=== PATIENT | female | born 1995 | race Caucasian/White ===

== ENCOUNTER 2018-04-11 09:28 | Emergency (ER) | payer OTHER, SELFPAY ==
--- OUTSIDE RECORDS SUMMARY | 2018-04-11 09:30 | XMS REPORT ---
:1995 Author Organization eClinicalWorks Care Team Providers Name Role Phone Ramón Dewey Provider Role Unavailable Allergies No Known Allergies Problems Problem Type Condition Code Onset Dates Condition Status Problem Encounter for screening for Z11.3 Active infections with predominantly sexual mode of transmission Problem Encounter for surveillance of Z30.46 Active implantable subdermal contraceptive Problem Subacute vaginitis N76.1 Active Problem Encounter for gynecological Z01.419 Active examination without abnormal finding Problem Other specified bacterial agents as B96.89 Active the cause of diseases classified elsewhere Problem Acute vaginitis N76.0 Active Medications Medication Code System Code Instructions Start Date End Date Status Dosage Diflucan [facility] [id number] 150 MG Orally Active 1 tablet Once a day Results No Known Results Summary Purpose eClinicalWorks Submission
--- OUTSIDE RECORDS SUMMARY | 2018-04-11 09:30 | XMS REPORT ---
:1995 Author Organization eClinicalWorks Care Team Providers Name Role Phone Ramón Dewey Provider Role Unavailable Allergies, Adverse Reactions, Alerts Substance Reaction Event Type N.K.D.A. Info Not Available Non Drug Allergy Problems Problem Type Condition Code Onset Dates Condition Status Assessment Encounter for screening for Z11.3 Active infections with predominantly sexual mode of transmission Problem Encounter for screening for Z11.3 Active infections with predominantly sexual mode of transmission Problem Encounter for surveillance of Z30.46 Active implantable subdermal contraceptive Problem Subacute vaginitis N76.1 Active Problem Encounter for gynecological Z01.419 Active examination without abnormal finding Assessment Subacute vaginitis N76.1 Active Problem Other specified bacterial agents as B96.89 Active the cause of diseases classified elsewhere Problem Acute vaginitis N76.0 Active Medications Medication Code System Code Instructions Start End Date Status Dosage Date Flagyl NDC 96156033335 500 MG Orally Active 1 tablet every 12 hours Nexplanon NDC 79287520051 68 MG Active not defined Subcutaneous Flagyl NDC 75741425815 500 MG Orally Active 1 tablet every 12 hours Results No Known Results Summary Purpose eClinicalWorks Submission
[2018-04-11] MEDS ORDERED: KETOROLAC 30 MG/ML INJ ONE (10:30)
[2018-04-11] MEDS ORDERED: HYDROCODONE/APAP 5/325 MG TAB ONE (10:30)
[2018-04-11 10:47] LABS: Urine Bacteria >50 /HPF (<20); Urine Culture Reflex Order REFLEXED; Urine RBC <5 /HPF (NONE SEEN)
[2018-04-11 10:48] LABS: Urine Blood TRACE (NEG); Urine Glucose NEGATIVE (NEG); Urine Protein NEGATIVE (NEG); Urine pH 5.5 (5.0-7.0)
--- NOTE | 2018-04-11 11:00 | RAD REPORT ---
EXAM DESCRIPTION: CT - Stone Protocol - 04/11/2018 10:35 am CLINICAL HISTORY: Abdominal pain. Left lower quadrant pain COMPARISON: 2016 TECHNIQUE: Computed axial tomography of the abdomen pelvis was obtained without oral or IV contrast. Lack of IV and oral contrast limits evaluation of solid organs, bowel, and vessels. Coronal reformat yehuda images were obtained and reviewed. All CT scans are performed using dose optimization technique as appropriate and may include automated exposure control or mA/KV adjustment according to patient size. FINDINGS: A renal calculus is not seen. Mild left hydronephrosis is present. A 3 millimeter calculus is present within the distal left ureter. The liver, spleen, pancreas and adrenals appear grossly normal There is no evidence of diverticulitis. A 2 centimeter left ovarian cyst is present without significa nt free-fluid IMPRESSION: 3 millimeter distal left ureteral calculus resulting in mild left hydronephrosis
--- NOTE | 2018-04-11 11:13 | EDPHYS ---
Physician Documentation [facility] Name: Yodit Sierra Age: 23 yrs Sex: Female : 1995 Arrival Date: 04/11/2018 Time: 09:30 Bed 7 Private MD: ED Physician Sergio Payne HPI: 04/11 11:56 This 23 yrs old Unknown Female presents to ER via Ambulatory with complaints of snw Possible Kidney Stone. 11:56 Onset: The symptoms/episode began/occurred gradually, 3 day(s) ago, and became snw persistent. Associated signs and symptoms: Pertinent positives: abdominal pain, dysuria. Modifying factors: The patient symptoms are alleviated by nothing. The patient has experienced a previous episode. It is unknown whether or not the patient has recently seen a physician. Historical: - Allergies: 09:46 NKA; ss - Home Meds: 09:46 None [Active]; ss - PMHx: 09:46 Kidney stones; ss - PSHx: 09:46 None; ss - Immunization history:: Adult Immunizations up to date. - Social history:: Smoking status: Patient/guardian denies using tobacco. - Ebola Screening: : Patient denies exposure to infectious person Patient denies travel to an Ebola-affected area in the 21 days before illness onset. ROS: 11:53 Constitutional: Negative for fever, chills, and weight loss, Eyes: Negative for injury, snw pain, redness, and discharge, ENT: Negative for injury, pain, and discharge, Neck: Negative for injury, pain, and swelling, Cardiovascular: Negative for chest pain, palpitations, and edema, Respiratory: Negative for shortness of breath, cough, wheezing, and pleuritic chest pain, Back: Negative for injury and pain, : Negative for injury, bleeding, discharge, and swelling, + burning with urination MS/Extremity: Negative for injury and deformity, Skin: Negative for injury, rash, and discoloration, Neuro: Negative for headache, weakness, numbness, tingling, and seizure. 11:53 Abdomen/GI: Positive for abdominal pain, of the left lower quadrant, Negative for nausea, vomiting, diarrhea, constipation. Exam: 11:53 Constitutional: This is a well developed, well nourished patient who is awake, alert, snw and in no acute distress. Head/Face: Normocephalic, atraumatic. Eyes: Pupils equal round and reactive to light, extra-ocular motions intact. Lids and lashes normal. Conjunctiva and sclera are non-icteric and not injected. Cornea within normal limits. Periorbital areas with no swelling, redness, or edema. ENT: Nares patent. No nasal discharge, no septal abnormalities noted. Tympanic membranes are normal and external auditory canals are clear. Oropharynx with no redness, swelling, or masses, exudates, or evidence of obstruction, uvula midline. Mucous membranes moist. Neck: Trachea midline, no thyromegaly or masses palpated, and no cervical lymphadenopathy. Supple, full range of motion without nuchal rigidity, or vertebral point tenderness. No Meningismus. Chest/axilla: Normal chest wall appearance and motion. Nontender with no deformity. No lesions are appreciated. Cardiovascular: Regular rate and rhythm with a normal S1 and S2. No gallops, murmurs, or rubs. Normal PMI, no JVD. No pulse deficits. Respiratory: Lungs have equal breath sounds bilaterally, clear to auscultation and percussion. No rales, rhonchi or wheezes noted. No increased work of breathing, no retractions or nasal flaring. Back: No spinal tenderness. No costovertebral tenderness. Full range of motion. Skin: Warm, dry with normal turgor. Normal color with no rashes, no lesions, and no evidence of cellulitis. MS/ Extremity: Pulses equal, no cyanosis. Neurovascular intact. Full, normal range of motion. Neuro: Awake and alert, GCS 15, oriented to person, place, time, and situation. Cranial nerves II-XII grossly intact. Motor strength 5/5 in all extremities. Sensory grossly intact. Cerebellar exam normal. Normal gait. 11:53 Abdomen/GI: Inspection: abdomen appears normal, Bowel sounds: normal, Palpation: moderate abdominal tenderness, in the left lower quadrant. Vital Signs: 09:46 BP 116 / 70; Pulse 93; Resp 16; Temp 97.8(TE); Pulse Ox 99% on R/A; Weight 66.22 kg; ss Pain 6/10; 10:45 BP 118 / 81; Pulse 90; Resp 16; Pulse Ox 98% on R/A; ph 11:35 BP 114 / 68; Pulse 87; Resp 18; Temp 97.8; Pulse Ox 99% on R/A; ph MDM: 09:49 Patient medically screened. snw 11:54 Data reviewed: vital signs, nurses notes. Data interpreted: Pulse oximetry: on room air snw is 99 %. Interpretation: normal. Counseling: I had a detailed discussion with the patient and/or guardian regarding: the historical points, exam findings, and any diagnostic results supporting the discharge/admit diagnosis, lab results, the need for outpatient follow up, to return to the emergency department if symptoms worsen or persist or if there are any questions or concerns that arise at home. Special discussion: Based on the patient's Hx, exam, and Dx evaluation, there is no indication for emergent surgery or inpatient Tx. It is understood by the patient/guardian that if the Sx's persist or worsen they need to return immediately for re-evaluation. Based on the history and exam findings, there is no indication for further emergent testing or inpatient evaluation. I discussed with the patient/guardian the need to see the primary care provider for further evaluation of the symptoms. 04/11 09:35 Order name: Urine Microscopic Only; Complete Time: 10:48 snw 04/11 09:35 Order name: Urine Culture [facility] 04/11 10:07 Order name: CT Stone Protocol; Complete Time: 11:03 snw 04/11 10:09 Order name: Urine Dipstick--Ancillary (enter results); Complete Time: 10:49 eb 04/11 10:09 Order name: Urine --Ancillary (enter results); Complete Time: 10:49 eb 04/11 09:35 Order name: Urine Test (obtain specimen); Complete Time: 10:01 snw 04/11 09:35 Order name: Urine Dipstick-Ancillary (obtain specimen); Complete Time: 10:01 snw Administered Medications: 10:25 Drug: [place] 5 mg-325 mg 1 tabs Route: PO; sg 11:34 Follow up: Response: No adverse reaction; Pain is decreased ph 10:26 Drug: TORadol 60 mg Route: IM; Site: Ventrogluteal LEFT; sg 11:34 Follow up: Response: No adverse reaction; Pain is decreased ph 11:06 Drug: Augmentin 875 mg Route: PO; sg 11:34 Follow up: Response: No adverse reaction ph 11:06 Drug: Flomax 0.4 mg Route: PO; 11:35 Follow up: Response: No adverse reaction ph Disposition: 04/12 06:37 Co-signature as Attending Physician, Sergio Payne MD I agree with the assessment and harini plan of care. Disposition: 04/11/18 11:12 Discharged to Home. Impression: Urinary tract infection, site not specified, Hydronephrosis with renal and ureteral calculous obstruction, Unspecified ovarian cysts. - Condition is Stable. - Discharge Instructions: Kidney Stones, Ovarian Cyst, Urinary Tract Infection, Adult, Hydronephrosis, Dietary Guidelines to Help Prevent Kidney Stones, Rehydration, Adult. - Prescriptions for Augmentin 875- 125 mg Oral Tablet - take 1 tablet by ORAL route every 12 hours for 10 days; 20 tablet. Flomax 0.4 mg Oral Capsule, Sust. Release 24 hr - take 1 capsule by ORAL route once daily 1/2 hour following the same meal each day; 10 capsule. Diclofenac Sodium 75 mg Oral Tablet Sustained Release - take 1 tablet by ORAL route 2 times per day; 30 tablet. - Work release form, Medication Reconciliation Form, Thank You Letter, Antibiotic Education, Prescription Opioid Use, School release form form. - Follow up: Private Physician; When: 2 - 3 days; Reason: Recheck today's complaints, Continuance of care, Re-evaluation by your physician. Follow up: Emergency Department; When: As needed; Reason: Worsening of condition. Signatures: Dispatcher [employer] Maximilian Barraza, RN Sergio Sanchez MD MD cha Therrien, Shelly, REGISTERED NURSE [employer] PARTUM-C REGISTERED NURSE [employer]-Csnw Xiomara Amezquita RN RN Sowmya Morris RN RN ph Corrections: (The following items were deleted from the chart) 04/11 11:36 11:12 04/11/2018 11:12 Discharged to Home. Impression: Urinary tract infection, site ph not specified; Hydronephrosis with renal and ureteral calculous obstruction; Unspecified ovarian cysts. Condition is Stable. Forms are Medication Reconciliation Form, Thank You Letter, Antibiotic Education, Prescription Opioid Use. Follow up: Private Physician; When: 2 - 3 days; Reason: Recheck today's complaints, Continuance of care, Re-evaluation by your physician. Follow up: Emergency Department; When: As needed; Reason: Worsening of condition. snw
--- NOTE | 2018-04-11 11:13 | ER ---
Nurse's Notes [facility] Name: Yodit Sierra Age: 23 yrs Sex: Female : 1995 Arrival Date: 04/11/2018 Time: 09:30 Bed 7 Private MD: Diagnosis: Urinary tract infection, site not specified;Hydronephrosis with renal and ureteral calculous obstruction;Unspecified ovarian cysts Presentation: 04/11 09:45 Presenting complaint: Patient states: sharp LLQ pain that began 20 minutes ago. Pt ss reports a hx of kidney stones and believes this is another as the symptoms are similar that the last one she had. Transition of care: patient was not received from another setting of care. Onset of symptoms was April 11, 2018. Risk Assessment: Do you want to hurt yourself or someone else? Patient reports no desire to harm self or others. Initial Sepsis Screen: Does the patient meet any 2 criteria? No. Patient's initial sepsis screen is negative. Does the patient have a suspected source of infection? No. Patient's initial sepsis screen is negative. Care prior to arrival: None. 09:45 Method Of Arrival: Ambulatory 09:45 Acuity: MARILYN 3 ss Historical: - Allergies: 09:46 NKA; ss - Home Meds: 09:46 None [Active]; ss - PMHx: 09:46 Kidney stones; ss - PSHx: 09:46 None; ss - Immunization history:: Adult Immunizations up to date. - Social history:: Smoking status: Patient/guardian denies using tobacco. - Ebola Screening: : Patient denies exposure to infectious person Patient denies travel to an Ebola-affected area in the 21 days before illness onset. Screenin:19 Abuse screen: Denies threats or abuse. Denies injuries from another. Nutritional sg screening: No deficits noted. Tuberculosis screening: No symptoms or risk factors identified. Never had TB. Fall Risk None identified. Assessment: 10:19 General: Appears in no apparent distress. uncomfortable, well groomed, well developed, sg well nourished. Pain: Complains of pain in back Quality of pain is described as aching, sharp, stabbing. Neuro: No deficits noted. Cardiovascular: Patient's skin is warm and dry. Chest pain is denied. Respiratory: Airway is patent Respiratory effort is even, unlabored, Respiratory pattern is regular, symmetrical. GI: No signs and/or symptoms were reported involving the gastrointestinal system. Bowel sounds present X 4 quads. Abd is soft and non tender X 4 quads. : No signs and/or symptoms were reported regarding the genitourinary system. EENT: No signs and/or symptoms were reported regarding the EENT system. Derm: Skin is pink, warm \T\ dry. Musculoskeletal: No signs and/or symptoms reported regarding the musculoskeletal system. 11:30 Reassessment: Patient appears in no apparent distress at this time. Patient and/or ph family updated on plan of care and expected duration. Pain level reassessed. Patient is alert, oriented x 3, equal unlabored respirations, skin warm/dry/pink. Pt d/c home w/ friend. Vital Signs: 09:46 BP 116 / 70; Pulse 93; Resp 16; Temp 97.8(TE); Pulse Ox 99% on R/A; Weight 66.22 kg; ss Pain 6/10; 10:45 BP 118 / 81; Pulse 90; Resp 16; Pulse Ox 98% on R/A; ph 11:35 BP 114 / 68; Pulse 87; Resp 18; Temp 97.8; Pulse Ox 99% on R/A; ph ED Course: 09:30 Patient arrived in ED. rg4 09:45 Triage completed. ss 09:46 Arm band placed on right wrist. ss 09:48 Nunu Ortiz F[facility]-C [facility] snw 09:49 Sergio Payne MD is Attending Physician. snw 10:00 Urine collected: clean catch specimen, clear. dh3 10:10 Radiology exam delayed due to test not completed at this time. jg6 10:17 Maximilian Mcclain, RN is Primary Nurse. sg 10:33 CT completed. Patient tolerated procedure well. Patient moved to CT via wheelchair. sj Patient moved back from CT. Patient moved back from radiology. 10:34 CT Stone Protocol In Process Unspecified. EDMS 11:31 Patient has correct armband on for positive identification. Bed in low position. Call ph light in reach. Side rails up X 1. Pulse ox on. NIBP on. Warm blanket given. 11:31 No provider procedures requiring assistance completed. Patient did not have IV access ph during this emergency room visit. Administered Medications: 10:25 Drug: [place] 5 mg-325 mg 1 tabs Route: PO; sg 11:34 Follow up: Response: No adverse reaction; Pain is decreased ph 10:26 Drug: TORadol 60 mg Route: IM; Site: Ventrogluteal LEFT; sg 11:34 Follow up: Response: No adverse reaction; Pain is decreased ph 11:06 Drug: Augmentin 875 mg Route: PO; sg 11:34 Follow up: Response: No adverse reaction ph 11:06 Drug: Flomax 0.4 mg Route: PO; sg 11:35 Follow up: Response: No adverse reaction ph Outcome: 11:12 Discharge ordered by . snдмитрий 11:32 Discharged to home ambulatory, with friend. ph 11:32 Condition: good 11:32 Discharge instructions given to patient, Instructed on discharge instructions, follow up and referral plans. medication usage, Demonstrated understanding of instructions, follow-up care, medications, Prescriptions given X 3. 11:36 Patient left the ED. ph Signatures: Dispatcher [employer] EDMS Maximilian Mcclain RN Nunu Joseph, HAND BRIM IRONER-C HAND BRIM IRONER-Liz Reed Shelby, RN RN ss Hall, Patricia, RN RN ph Garcia, Rubi rg4 Herrera, Deanna Rupa Rodriguezg6
[2018-04-11] MEDS ORDERED: AMOX/K CLAV 875 MG TAB ONE (11:18)
[2018-04-11] MEDS ORDERED: TAMSULOSIN 0.4 MG SR CAP ONE (11:18)
[2018-04-11 11:41] VITALS: TEMP 97.8
[2018-04-11 11:44] VITALS: BP 114/68; O2SAT 99
== END 2018-04-11 11:36 | disposition home or self-care (01) ==
LOC: ER 09:28
DX: N39.0 Urinary tract infection, site not specified (principal); N13.2 Hydronephrosis with renal and ureteral calculous obstruction; N83.202 Unspecified ovarian cyst, left side
CPT/HCPCS: 74176; 76377; 81003; 81015; 81025; 87086; 87088

== ENCOUNTER 2018-04-14 19:19 | Inpatient (IN) | payer SELFPAY ==
--- OUTSIDE RECORDS SUMMARY | 2018-04-14 19:21 | XMS REPORT ---
[...] Start Date End Date Status Dosage Diflucan [facility] [id number] 150 MG Orally Active 1 tablet Once a day Results No Known Results Summary Purpose eClinicalWorks Submission
--- OUTSIDE RECORDS SUMMARY | 2018-04-14 19:21 | XMS REPORT ---
[...] End Date Status Dosage Date Flagyl NDC 58035167186 500 MG Orally Active 1 tablet every 12 hours Nexplanon NDC 21457504771 68 MG Active not defined Subcutaneous Flagyl NDC 24119313216 500 MG Orally Active 1 tablet every 12 hours Results No Known Results Summary Purpose eClinicalWorks Submission
[2018-04-14] MEDS ORDERED: FENTANYL CITR 100 MCG/2 ML ONE (21:37)
[2018-04-14] MEDS ORDERED: ONDANSETRON 4 MG/2 ML VIAL ONE (21:38)
[2018-04-14 21:53] LABS: Absolute Lymphocytes (CBC) 1.5 K/uL (0.7-4.9); Absolute Monocytes 0.5 K/uL (0.1-1.3); Absolute Neutrophil 4.8 K/uL (1.8-8.0); Basophils % 0.2 % (0-1.3); Eosinophils % 2.6 % (0-4.4); Lymphocytes % 20.9 % (15.3-44.8); MPV 7.9 fL (7.6-11.3); Monocytes % 7.5 % (3.3-12.3); RBC Red Blood Cell Count 4.38 M/uL (3.86-4.86)
[2018-04-14 22:07] LABS: Albumin 3.8 g/dL (3.4-5.0); Bilirubin Direct 0.2 mg/dL (0-0.2); Bilirubin Total 0.4 mg/dL (0.2-1.0); Potassium 3.7 mmol/L (3.5-5.1); Protein, Total 7.3 g/dL (6.4-8.2)
--- NOTE | 2018-04-14 22:09 | RAD REPORT ---
EXAM DESCRIPTION: CT - Stone Protocol - 04/14/2018 9:57 pm CLINICAL HISTORY: Abdominal pain, flank pain COMPARISON: April 11 TECHNIQUE: Axial 5 mm thick images were obtained without oral or IV contrast. The [id number]-hm-ccan span s the entirety of the system including uppermost abdomen and lung bases. All CT scans are performed using dose optimization technique as appropriate and may include automated exposure control or mA/KV adjustment according to patient size. FINDINGS: Left-sided hydronephrosis is present slightly worse than April 11. The 3-4 millimeter le ft ureteral calculus has migrated to the UVJ. No suspicious renal masses. Isodense masses and pyelone phritis are not excluded on a stone protocol CT scan. No urinary bladder suspicious finding. No signi ficant adrenal finding. Imaged portions of the liver, spleen and pancreas show no suspicious findings on non-contrast imaging . No gallbladder or biliary tree abnormality identified. No suspicious bowel findings. No hernia, mass or bulky lymphadenopathy noted. No free air, free fluid or inflammatory stranding. No significant bony abnormality. IMPRESSION: A 3-4 millimeter calcification in the left ureter has migrated to the UVJ. Hydronephrosi s has worsened slightly since April 11. Isodense masses and pyelonephritis are not excluded on stone protocol technique.
--- NOTE | 2018-04-14 22:20 | ER ---
Nurse's Notes [facility] Name: Yodit Sierra Age: 23 yrs Sex: Female : 1995 Arrival Date: 04/14/2018 Time: 19:22 Bed 9 Private MD: Latia Christopher Diagnosis: Hydronephrosis with renal and ureteral calculous obstruction Presentation: 04/14 19:38 Presenting complaint: Patient states: Seen here on and DX with 3mm kidney aj stone and discharged. Patient reports that her pain has not changed and the stone has not passed. States "they normally give me Tylenol #3 but they didn't and this medicine isn't helping with the pain." Appears in NAD in triage. Transition of care: patient was not received from another setting of care. Onset of symptoms was April 10, 2018. Risk Assessment: Do you want to hurt yourself or someone else? Patient reports no desire to harm self or others. Initial Sepsis Screen: Does the patient meet any 2 criteria? No. Patient's initial sepsis screen is negative. Does the patient have a suspected source of infection? No. Patient's initial sepsis screen is negative. Care prior to arrival: None. 19:38 Method Of Arrival: Ambulatory aj 19:38 Acuity: MARILYN 3 aj Triage Assessment: 19:40 General: Appears in no apparent distress. comfortable, Behavior is calm, cooperative, aj appropriate for age. Pain: Complains of pain in left lower quadrant. Neuro: Level of Consciousness is awake, alert, obeys commands, Oriented to person, place, time, situation, Appropriate for age. Respiratory: Airway is patent Respiratory effort is even, unlabored, Respiratory pattern is regular, symmetrical. Derm: Skin is intact, is healthy with good turgor, Skin is pink, warm \\T\\ dry. normal. 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 - Social history:: Smoking status: Patient/guardian denies using tobacco. - Ebola Screening: : Patient negative for fever greater than or equal to 101.5 degrees Fahrenheit, and additional compatible Ebola Virus Disease symptoms Patient denies exposure to infectious person Patient denies travel to an Ebola-affected area in the 21 days before illness onset No symptoms or risks identified at this time. Screenin:15 Abuse screen: Denies threats or abuse. Nutritional screening: No deficits noted. bb Tuberculosis screening: No symptoms or risk factors identified. Fall Risk None identified. Assessment: 21:15 General: Appears uncomfortable, slender, Behavior is anxious, crying. Pain: Complains bb of pain in abdomen Pain currently is 9 out of 10 on a pain scale. Neuro: Level of Consciousness is awake, alert, obeys commands, Oriented to person, place, time, situation. Cardiovascular: Heart tones S1 S2 present Capillary refill < 3 seconds Patient's skin is warm and dry. Respiratory: Airway is patent Respiratory effort is even, unlabored, Respiratory pattern is regular, Breath sounds are clear bilaterally. GI: Abdomen is round Bowel sounds hyperactive in right upper quadrant, left upper quadrant, right lower quadrant and left lower quadrant Abdomen is tender to palpation in left flank. Derm: Skin is pink, warm \\T\\ dry. Musculoskeletal: Circulation, motion, and sensation intact. 22:30 Reassessment: Patient is alert, oriented x 3, equal unlabored respirations, skin bb warm/dry/pink. pt instructed on need for admit verbalized understanding of and agrees to plan of care awaiting room assignment. 23:30 Reassessment: Patient and/or family updated on plan of care and expected duration. Pain bb level reassessed. Patient is alert, oriented x 3, equal unlabored respirations, skin warm/dry/pink. IV site intact, no erythema or edema noted. Vital Signs: 19:40 BP 106 / 61; Pulse 101; Resp 20; Temp 98.9; Pulse Ox 100% on R/A; Weight 66.22 kg; aj Height 5 ft. 6 in. (167.64 cm); 21:15 BP 128 / 70; Pulse 88; Resp 18 S; Temp 98.7(O); Pulse Ox 100% on R/A; Pain 8/10; bb 04/15 00:27 BP 95 / 50; Pulse 66; Resp 16 S; Temp 97.2(O); Pulse Ox 98% on R/A; Pain 7/10; bb 04/14 19:40 Body Mass Index 23.56 (66.22 kg, 167.64 cm) aj ED Course: 04/14 19:22 Patient arrived in ED. am2 19:22 Latia Christopher FNP-C is Private Physician. am2 19:40 Triage completed. aj 19:40 Arm band placed on left wrist. Patient placed in waiting room, Patient notified of wait aj time. 21:00 Dewey Yan PA is PHCP. jr8 21:00 Edin Malone MD is Attending Physician. jr8 21:15 Patient has correct armband on for positive identification. Call light in reach. Adult bb w/ patient. 21:15 No provider procedures requiring assistance completed. bb 21:35 Inserted saline lock: 20 gauge in right antecubital area, using aseptic technique. mw2 Blood collected. 21:55 CT completed. Patient moved to CT via wheelchair. Patient moved back from CT. bq 22:19 Eugenia Gallegos MD is Hospitalizing Provider. jr8 22:54 Shelbie Brown RN is Primary Nurse. bb 04/15 00:15 Patient admitted, IV remains in place. bb Administered Medications: 04/14 21:48 Drug: Zofran 4 mg Route: IVP; Site: right antecubital; jd3 22:40 Follow up: Response: Nausea is decreased bb 21:51 Drug: fentaNYL (PF) 50 mcg Route: IVP; Site: right antecubital; jd3 22:40 Follow up: Response: Pain is decreased bb 23:06 Drug: Rocephin 1 grams Route: IV; Rate: calculated rate; Site: right antecubital; bb 23:11 Follow up: IV Status: Completed infusion; IV Intake: 10ml bb 04/15 00:07 Follow up: Response: No adverse reaction bb Intake: 04/14 23:11 IV: 10ml; Total: 10ml. bb Outcome: 22:20 Decision to Hospitalize by Provider. jr8 04/15 00:15 Instructed on the need for admit. bb 00:38 Admitted to Tele accompanied by nurse, via wheelchair, room 228, with chart, Report bb called to Tamia TOBIAS 00:38 Condition: stable 00:40 Patient left the ED. bb Signatures: Pamela Rhoades, RN RN Reny Prescott Brenda, RN RN bb Dewey Yan, MIGUEL RIVERA jr8 Pamela Bingham am2 Ben Gonzalez RN RN jd3 Lizet Pandya mw2 Corrections: (The following items were deleted from the chart) 00:13 04/14 21:15 GI: Abdomen is round Bowel sounds hyperactive in right upper quadrant, left bb upper quadrant, right lower quadrant and left lower quadrant Abdomen is tender to palpation in right lower quadrant bb 04/15 00:14 04/14 21:15 BP 102 / 67; Pulse 115bpm; Resp 20bpm; Spontaneous; Pulse Ox 100% RA; Temp bb 98.6F Oral; Pain 9/10; bb
--- NOTE | 2018-04-14 22:20 | EDPHYS ---
Physician Documentation [facility] Name: Yodit Sierra Age: 23 yrs Sex: Female : 1995 Arrival Date: 04/14/2018 Time: 19:22 Bed 9 Private MD: Latia Christopher ED Physician Edin Malone HPI: 04/14 22:02 This 23 yrs old Unknown Female presents to ER via Ambulatory with complaints of Flank jr8 Pain - had not passed stone. 22:02 The patient complains of pain in the left flank. The pain radiates. Onset: The jr8 symptoms/episode began/occurred acutely, 3 day(s) ago. Modifying factors: The symptoms are alleviated by nothing. the symptoms are aggravated by nothing. Associated signs and symptoms: Pertinent positives: nausea, vomiting. Severity of pain: At its worst the pain was moderate in the emergency department the pain is unchanged. The patient has experienced similar episodes in the past, a few times. The patient has been recently seen by a physician:. Patient seen in ED this past and diagnosed with stone on left side. Stated that she was given medicine to go home on and has been taking it as prescribed with little to no relief. Stated that she is unable to keep food or water down . 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 - Social history:: Smoking status: Patient/guardian denies using tobacco. - Ebola Screening: : Patient negative for fever greater than or equal to 101.5 degrees Fahrenheit, and additional compatible Ebola Virus Disease symptoms Patient denies exposure to infectious person Patient denies travel to an Ebola-affected area in the 21 days before illness onset No symptoms or risks identified at this time. ROS: 22:02 Eyes: Negative for injury, pain, redness, and discharge, ENT: Negative for injury, jr8 pain, and discharge, Neck: Negative for injury, pain, and swelling, Cardiovascular: Negative for chest pain, palpitations, and edema, Respiratory: Negative for shortness of breath, cough, wheezing, and pleuritic chest pain, MS/Extremity: Negative for injury and deformity, Skin: Negative for injury, rash, and discoloration, Neuro: Negative for headache, weakness, numbness, tingling, and seizure. 22:02 Abdomen/GI: Positive for nausea and vomiting, Negative for abdominal pain, diarrhea, constipation, abdominal cramps, abdominal distension, anorexia, dysphagia, hematemesis, black/tarry stool, rectal pain, rectal bleeding, bowel incontinence, flatulence. 22:02 Back: Positive for flank pain, on the left. Exam: 22:02 Eyes: Pupils equal round and reactive to light, extra-ocular motions intact. Lids and jr8 lashes normal. Conjunctiva and sclera are non-icteric and not injected. Cornea within normal limits. Periorbital areas with no swelling, redness, or edema. ENT: Nares patent. No nasal discharge, no septal abnormalities noted. Tympanic membranes are normal and external auditory canals are clear. Oropharynx with no redness, swelling, or masses, exudates, or evidence of obstruction, uvula midline. Mucous membranes moist. Neck: Trachea midline, no thyromegaly or masses palpated, and no cervical lymphadenopathy. Supple, full range of motion without nuchal rigidity, or vertebral point tenderness. No Meningismus. Cardiovascular: Regular rate and rhythm with a normal S1 and S2. No gallops, murmurs, or rubs. Normal PMI, no JVD. No pulse deficits. Respiratory: Lungs have equal breath sounds bilaterally, clear to auscultation and percussion. No rales, rhonchi or wheezes noted. No increased work of breathing, no retractions or nasal flaring. Abdomen/GI: Soft, non-tender, with normal bowel sounds. No distension or tympany. No guarding or rebound. No evidence of tenderness throughout. Skin: Warm, dry with normal turgor. Normal color with no rashes, no lesions, and no evidence of cellulitis. MS/ Extremity: Pulses equal, no cyanosis. Neurovascular intact. Full, normal range of motion. Neuro: Awake and alert, GCS 15, oriented to person, place, time, and situation. Cranial nerves II-XII grossly intact. Motor strength 5/5 in all extremities. Sensory grossly intact. Cerebellar exam normal. Normal gait. 22:02 Back: pain, that is moderate, of the left flank, ROM is normal, normal spinal alignment noted, CVA tenderness, is absent, muscle spasm, is not present. Vital Signs: 19:40 BP 106 / 61; Pulse 101; Resp 20; Temp 98.9; Pulse Ox 100% on R/A; Weight 66.22 kg; aj Height 5 ft. 6 in. (167.64 cm); 21:15 BP 128 / 70; Pulse 88; Resp 18 S; Temp 98.7(O); Pulse Ox 100% on R/A; Pain 8/10; bb 04/15 00:27 BP 95 / 50; Pulse 66; Resp 16 S; Temp 97.2(O); Pulse Ox 98% on R/A; Pain 7/10; bb 04/14 19:40 Body Mass Index 23.56 (66.22 kg, 167.64 cm) aj MDM: 04/14 21:01 Patient medically screened. [facility] 22:18 Data reviewed: vital signs, nurses notes, lab test result(s), radiologic studies, CT jr scan, and as a result, I will admit patient. Data interpreted: Pulse oximetry: on room air is 100 %. Interpretation: normal. Counseling: I had a detailed discussion with the patient and/or guardian regarding: the historical points, exam findings, and any diagnostic results supporting the discharge/admit diagnosis, lab results, radiology results, the need for further work-up and treatment in the hospital. Physician consultation: Lamberto Kramer MD was called at 22:18, was contacted at 22:18, regarding admission, to the medical/surgical unit. consult, patient's condition, and will see patient. 04/14 21:19 Order name: Basic Metabolic Panel 8 04/14 21:19 Order name: CBC with Diff [facility] 04/14 21:19 Order name: Creatinine for Radiology [facility] 04/14 21:19 Order name: Hepatic Function [facility] 04/14 21:19 Order name: Lipase 8 04/14 21:53 Order name: CBC with Automated Diff; Complete Time: 22:02 EDMS 04/14 21:19 Order name: CT Stone Protocol [facility] 04/14 22:07 Order name: Basic Metabolic Panel; Complete Time: 22:09 [facility] 04/14 22:07 Order name: Liver (Hepatic) Function; Complete Time: 22:09 [facility] 04/14 22:07 Order name: Lipase; Complete Time: 22:09 [facility] 04/14 22:08 Order name: Creatinine (Radiology Only); Complete Time: 22:09 [facility] 04/14 22:10 Order name: CT; Complete Time: 22:11 [facility] 04/14 22:19 Order name: XRAY KUB [facility] 04/14 21:19 Order name: IV Saline Lock; Complete Time: 21:51 [facility] 04/14 21:19 Order name: Labs collected and sent; Complete Time: 00:08 [facility] 04/14 22:01 Order name: Urine Test (obtain specimen) [facility] 04/14 22:02 Order name: Urine Dipstick-Ancillary (obtain specimen) [facility] Administered Medications: 21:48 Drug: Zofran 4 mg Route: IVP; Site: right antecubital; jd3 22:40 Follow up: Response: Nausea is decreased bb 21:51 Drug: fentaNYL (PF) 50 mcg Route: IVP; Site: right antecubital; jd3 22:40 Follow up: Response: Pain is decreased bb 23:06 Drug: Rocephin 1 grams Route: IV; Rate: calculated rate; Site: right antecubital; bb 23:11 Follow up: IV Status: Completed infusion; IV Intake: 10ml 04/15 00:07 Follow up: Response: No adverse reaction bb Disposition: 04/14/18 22:20 Hospitalization ordered by Eugenia Gallegos for Observation. Preliminary diagnosis is Hydronephrosis with renal and ureteral calculous obstruction. - Bed requested for Telemetry/MedSurg (observation). - Status is Observation. bb - Condition is Stable. - Problem is new. - Symptoms have improved. UTI on Admission? No Signatures: Dispatcher [employer] [facility] Courtney Kerns RN RN mw Myers, Amanda, RN RN aj Ballard, Brenda, RN RN bb Roszak, Josh, PA PA jr8 Ben Gonzalez RN RN jd3 Corrections: (The following items were deleted from the chart) 04/14 23:27 22:20 Hospitalization Ordered by Eugenia Gallegos MD for Observation. Preliminary diagnosis is Hydronephrosis with renal and ureteral calculous obstruction. Bed requested for Telemetry/MedSurg (observation). Status is Observation. Condition is Stable. Problem is new. Symptoms have improved. UTI on Admission? No. jr8 04/15 00:40 04/14 23:27 04/14/2018 22:20 Hospitalization Ordered by Eugenia Gallegos MD for bb Observation. Preliminary diagnosis is Hydronephrosis with renal and ureteral calculous obstruction. Bed requested for Telemetry/MedSurg (observation). Status is Observation. Condition is Stable. Problem is new. Symptoms have improved. UTI on Admission? No. mw
[2018-04-14] MEDS ORDERED: CEFTRIAXONE/SWI 1gm 1 GM/10 ML SYR ONE (23:05)
[2018-04-14] MEDS ORDERED: ACETAMINOPHEN 500 MG TAB PO PRN (23:22)
[2018-04-14] MEDS ORDERED: ONDANSETRON 4 MG/2 ML VIAL IV PRN (23:22)
[2018-04-15] MEDS: NA CHLORIDE 0.9% 1,000 ML IV SCH ×6 (00:56→22:54)
[2018-04-15 01:09] VITALS: BMI 27.6
[2018-04-15] MEDS: MORPHINE 4 MG/ML SYR IV PRN ×5 (01:19→22:54)
[2018-04-15 04:03] LABS: Urine Appearance CLEAR; Urine Bilirubin NEGATIVE (NEG); Urine Blood NEGATIVE (NEG); Urine Color YELLOW; Urine Glucose NEGATIVE (NEG); Urine Protein NEGATIVE (NEG); Urine Specific Gravity <=1.005 (1.005-1.030); Urine Urobilinogen 0.2 mg/dL (0.2-1.0)
[2018-04-15 04:04] LABS: Urine Microscopic Reflex ORDER UMIC
[2018-04-15 05:06] LABS: Urine Bacteria <20 /HPF (<20); Urine Culture Reflex Order REFLEXED; Urine RBC NONE SEEN /HPF (NONE SEEN); Urine Yeast FEW (NONE SEEN); Urine Yeast with Hyphae PRESENT
[2018-04-15 06:21] LABS: Absolute Lymphocytes (CBC) 1.7 K/uL (0.7-4.9); Absolute Monocytes 0.7 K/uL (0.1-1.3); Absolute Neutrophil 5.4 K/uL (1.8-8.0); Basophils % 0.3 % (0-1.3); Eosinophils % 2.4 % (0-4.4); Hematocrit 39.3 % (36.0-45.0); Lymphocytes % 21.4 % (15.3-44.8); MPV 7.9 fL (7.6-11.3); Monocytes % 8.2 % (3.3-12.3); RBC Red Blood Cell Count 4.27 M/uL (3.86-4.86)
[2018-04-15 06:26] LABS: Albumin 3.5 g/dL (3.4-5.0); Bilirubin Total 0.4 mg/dL (0.2-1.0); Magnesium 2.1 mg/dL (1.8-2.4); Phosphorus 3.9 mg/dL (2.5-4.9); Potassium 3.7 mmol/L (3.5-5.1); Protein, Total 6.9 g/dL (6.4-8.2)
--- NOTE | 2018-04-15 06:39 | P.HP ---
Certification for Inpatient Patient admitted to: Inpatient With expected LOS: >2 Midnights Patient will require the following post-hospital care: None Practitioner: I am a practitioner with admitting privileges, knowledge of patient current condition, hospital course, and medical plan of care. Services: Services provided to patient in accordance with Admission requirements found in Title 42 Section 412.3 of the Code of Federal Regulations Patient History Date of Service: 04/14/18 Reason for admission: Flank pain secondary to nephrolithiasis History of Present Illness: Patient is a 23-year-old female came to the hospital with abdominal pain. Patient was found have nephrolithiasis. Patient was found to have a 3-4 millimeter calcification in the left ureter which has migrated to the UVJ. Hydronephrosis has worsened since April 11. Patient was admitted to the hospital with consultation to Urology. Patient will be kept NPO. Continue with aggressive IV hydration and pain control. IV antibiotic will be started as well. Will also strain all urine. Will send the stone to pathology for review. Allergies No Known Allergies Allergy (Verified 04/15/18 01:07) Home Medications: Tamsulosin [Flomax*] 1 cap PO DAILY 04/15/18 - Past Medical/Surgical History Has patient received pneumonia vaccine in the past: No Diabetic: No -: Nephrolithiasis Past Surgical History: Patient denies surgical history - Family History grandfather Medical History: Heart disease, Other (see notes) Notes: heart attack - Social History Smoking Status: Never smoker Alcohol use: Yes CD- Drugs: No Caffeine use: Yes Place of Residence: Home Review of Systems 10-point ROS is otherwise unremarkable Physical Examination - Vital Signs Temperature: 97.7 F Blood Pressure: 99/58 Pulse: 75 Respirations: 16 Pulse Ox (%): 99 - Physical Exam General: Alert, In no apparent distress, Oriented x3 HEENT: Atraumatic, PERRLA, Mucous membr. moist/pink, EOMI, Sclerae nonicteric Neck: Supple, 2+ carotid pulse no bruit, No LAD, Without JVD or thyroid abnormality Respiratory: Clear to auscultation bilaterally, Normal air movement Cardiovascular: Regular rate/rhythm, Normal S1 S2, No murmurs Gastrointestinal: Normal bowel sounds, Soft and benign, Non-distended, Tenderness (Left flank) Musculoskeletal: No clubbing, No swelling, No tenderness Integumentary: No rashes Neurological: Normal gait, Normal speech, Normal strength at 5/5 x4 extr, Normal tone, Normal affect Lymphatics: No axilla or inguinal lymphadenopathy - Studies Laboratory Data (last 24 hrs) 04/14/18 21:36: Creatinine 1.00 04/14/18 21:36: WBC 7.0, Hgb 13.6, Hct 40.0, Plt Count 256 04/14/18 21:36: Sodium 140, Potassium 3.7, BUN 9, Creatinine 0.91, Glucose 77, Total Bilirubin 0.4, AST 68 H, ALT 71, Alkaline Phosphatase 67, Lipase 96 Assessment & Plan - Problems (Diagnosis) (1) Left nephrolithiasis Current Visit: Yes Status: Acute (2) Ureterovesical junction (UVJ) obstruction Current Visit: Yes Status: Acute (3) Obstructive uropathy Current Visit: Yes Status: Acute (4) Hydronephrosis Current Visit: Yes Status: Acute - Plan Plan: 1. Aggressive IV hydration 2. Pain control 3. IV antibiotics 4. Neurology consultation 5. Strain all urine and send stone to pathology 6. Keep patient NPO 7. GI and DVT prophylaxis Discharge Plan: Home Plan to discharge in: Greater than 2 days - Advance Directives Does patient have a Living Will: No Does patient have a Durable POA for Healthcare: No - Code Status/Comfort Care Code Status Assessed: Yes Code Status: Full Code Critical Care: No Time Spent Managing PTS Care (In Minutes): 50
[2018-04-15] MEDS ORDERED: KCL 20 MEQ/100 mL IVPB 20 MEQ/100 ML BAG IV SCH (07:00)
--- NOTE | 2018-04-15 08:22 | RAD REPORT ---
EXAM DESCRIPTION: RAD - Abdomen 1 View (KUB) - 04/14/2018 10:57 pm CLINICAL HISTORY: Abdomen pain. FINDINGS: The bowel gas pattern is unremarkable. Vague 3 millimeter density within the left pelvis probably may correspond to the previously seen left UVJ calculus
[2018-04-15] MEDS: CEFTRIAXONE/SWI 1gm 1 GM/10 ML SYR IV SCH ×2 (08:38→20:29)
[2018-04-15] MEDS ORDERED: CEFTRIAXONE 1 GM/50 ML BAG IV SCH (09:00)
[2018-04-15] MEDS ORDERED: Ringers Lactate 1,000 ML IV ONE (10:08)
[2018-04-15] MEDS ORDERED: FENTANYL CITR 100 MCG/2 ML ONE ×2 (10:15→10:46)
[2018-04-15] MEDS ORDERED: PROPOFOL 200 MG/20 ML VIAL IV ONE (10:46)
[2018-04-15] MEDS ORDERED: MIDAZOLAM HCL 2 MG/2 ML INJ ONE (10:47)
[2018-04-15] MEDS ORDERED: LIDOCAINE 2% MPF 5 ML VIAL ONE (10:47)
[2018-04-15] MEDS ORDERED: ONDANSETRON 4 MG/2 ML VIAL ONE ×2 (10:47→11:13)
--- NOTE | 2018-04-15 11:07 | P.DS ---
Admission Date: 04/15/18 Discharge Date: 04/15/18 Primary Care Provider: Eliazar Christopher NP Disposition: ROUTINE DISCHARGE Discharge Condition: GOOD Reason for Admission: Flank pain secondary to nephrolithiasis Consultations: Urology-Dr. Kramer Procedures: CT scan: COMPARISON: April 11 TECHNIQUE: Axial 5 mm thick images were obtained without oral or IV contrast. The [id number] spans the entirety of the system including uppermost abdomen and lung bases. All CT scans are performed using dose optimization technique as appropriate and may include automated exposure control or mA/KV adjustment according to patient size. FINDINGS: Left-sided hydronephrosis is present slightly worse than April 11. The 3-4 millimeter left ureteral calculus has migrated to the UVJ. No suspicious renal masses. Isodense masses and pyelonephritis are not excluded on a stone protocol CT scan. No urinary bladder suspicious finding. No significant adrenal finding. Imaged portions of the liver, spleen and pancreas show no suspicious findings on non-contrast imaging. No gallbladder or biliary tree abnormality identified. No suspicious bowel findings. No hernia, mass or bulky lymphadenopathy noted. No free air, free fluid or inflammatory stranding. No significant bony abnormality. IMPRESSION: A 3-4 millimeter calcification in the left ureter has migrated to the UVJ. Hydronephrosis has worsened slightly since April 11. Isodense masses and pyelonephritis are not excluded on stone protocol technique. Urology procedure: Cystoscopy, Ureteroscopy, stone removal and double J stent placement Medical Problem List: Left flank pain secondary to 4 mm calcification in the left ureter near UVJ junction with hydronephrosis History of nephrolithiasis Brief History of Present Illness: 23-year-old female presented emergency room with left flank pain. Patient found to have 4 mm nephrolithiasis at UVJ junction. Hydronephrosis noted. Patient admitted for further treatment. Hospital Course: Patient presented with left flank pain. Patient with history of nephrolithiasis. Patient found to have 4 mm calcification in the left ureter near UVJ junction with hydronephrosis. Patient was admitted for treatment. Patient received IV fluids. Urology consulted. Urological intervention was required. Cystoscopy, ureteroscopy, removal of stone and placement of double J stent placed. Patient will need a follow up with urology within 1 week to follow up this hospitalization and to continue her care. Vital Signs/Physical Exam: Temp Pulse Resp BP Pulse Ox 97.6 F 67 20 98/54 L 99 04/15/18 08:00 04/15/18 08:00 04/15/18 08:00 04/15/18 08:00 04/15/18 08:00 General: Alert, In no apparent distress, Oriented x3, Cooperative HEENT: Atraumatic Neck: Supple Respiratory: Clear to auscultation bilaterally, Normal air movement Cardiovascular: Normal pulses, Regular rate/rhythm Gastrointestinal: Normal bowel sounds, Soft and benign, Non-distended, No tenderness, No masses, No rebound, No guarding Musculoskeletal: No erythema, No tenderness, No warmth Integumentary: No erythema, No warmth, No cyanosis Neurological: Normal speech, Normal strength at 5/5 x4 extr, Normal tone, Normal affect Laboratory Data at Discharge: WBC 8.0 K/uL (4.3-10.9) D 04/15/18 05:52 Hgb 13.4 g/dL (12.0-15.0) 04/15/18 05:52 Hct 39.3 % (36.0-45.0) 04/15/18 05:52 Plt Count 241 K/uL (152-406) 04/15/18 05:52 Sodium 140 mmol/L (136-145) 04/15/18 05:52 Potassium 3.7 mmol/L (3.5-5.1) 04/15/18 05:52 BUN 10 mg/dL (7-18) 04/15/18 05:52 Creatinine 1.05 mg/dL (0.55-1.3) 04/15/18 05:52 Glucose 82 mg/dL (74-106) 04/15/18 05:52 Phosphorus 3.9 mg/dL (2.5-4.9) 04/15/18 05:52 Magnesium 2.1 mg/dL (1.8-2.4) 04/15/18 05:52 Total Bilirubin 0.4 mg/dL (0.2-1.0) 04/15/18 05:52 AST 74 U/L (15-37) H 04/15/18 05:52 ALT 88 U/L (12-78) H 04/15/18 05:52 Alkaline Phosphatase 62 U/L (45-117) 04/15/18 05:52 Lipase 96 U/L (73-393) 04/14/18 21:36 Home Medications: Tamsulosin [Flomax*] 1 cap PO DAILY 04/15/18 Patient Discharge Instructions: 1. Patient will need a follow up with a PCP in in 1 week to follow up this hospitalization. 2. Patient presented with left flank pain. Patient with history of nephrolithiasis. Patient found to have 4 mm calcification in the left ureter near UVJ junction with hydronephrosis. Patient was admitted for treatment. Patient received IV fluids. Urology consulted. Urological intervention was required. Cystoscopy, ureteroscopy, removal of stone and placement of double J stent placed. Patient will need a follow up with urology within 1 week to follow up this hospitalization and to continue her care. Diet: AHA Activity: Ad yanni Time spent managing pt's care (in minutes): 55
[2018-04-15 12:04] VITALS: O2SAT 99
--- NOTE | 2018-04-15 12:35 | RAD REPORT ---
EXAM DESCRIPTION: RAD - Cystography - 04/15/2018 11:30 am CLINICAL HISTORY: ICD N 20.0/ureteral stent placement FINDINGS: . Fluoroscopy time 25 seconds. Eleven fluoroscopic spot images obtained. The left ureter was cannulated and contrast administered. Subsequently a left ureteral stent was plac ed. The procedure was performed by Dr. Kramer
--- NOTE | 2018-04-15 13:14 | CON ---
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 She had a history of stones 2 yea rs ago which she passed. She was in the ER 3-4 days ago, was diagnosed with a stone, sent home on pa in medication and Flomax. She came back with worsening pain, nausea and vomiting. CT scan showed a 3 to 4 mm stone in left UVJ with worsening hydronephrosis since the , but I am not able to see he r imaging from the for some reason. She was made n.p.o. last night and she is ready for cystosc opy, ureteroscopy, and stone extraction. She was present with her sister in the room, went over all the general information, alternatives, and risks and she wishes to proceed. She was not coerced and she was competent to sign her informed consent. Allergies: NO KNOWN DRUG ALLERGIES. Home Medications: Pain medications and tamsulosin. Past Medical History: Kidney stone, which she passed. Family History: Grandfather had heart disease. Social History: Never smoked. Does use some alcohol. She does not do drugs. Caffeine use, some, y es. She resides at home. Review of Systems: Ten-point review of systems otherwise unremarkable. Physical Examination: Current Vital Signs: 97.6, pulse 67, respirations 20, BP 98/54, and saturations 99%. General: The patient is alert and oriented, in no acute distress. The patient is well developed. HEENT: Atraumatic and normocephalic. Mucous membrane moist. Neck: Supple. No JVD. Respirations: Clear. Cardiovascular: S1 and S2. Gastrointestinal: Normal bowel sounds. Musculoskeletal: No clubbing. Skin: No rashes. Neurological: Normal gait and speech. Lymphatics: No adenopathy. Laboratory Data: Her white count is 8.0, H and H are 13 and 39, platelet count 241. Chemistry: Sod ium 140, potassium 3.7, chloride 108, carbon dioxide 25, BUN 10, creatinine 1.05, GFR is 66 estimated , calcium 8.6, phosphorus normal at 3.9. UA shows clear yellow, pH 6.0, specific gravity less than 1 .005, leukocyte esterase trace, wbc's less than 5, squamous epithelial cells 5 to 10, bacteria less t li 20, yeast few seen, yeast with hyphae present, budding yeast present. Radiological Studies: Reviewed. CT scan reviewed as mentioned above, 3-4 mm stone at the left UVJ. Her KUB also shows a faint stone within that area, possible 3-mm density in the left pelvis correspo nding to the area of the left UVJ. Plan: So, the plan is for cystoscopy, left retrograde, ureteral dilation, ureteroscopy, stone extrac tion by basketing and insertion of double-J stent. All the general information, alternatives, and ri sks were given. The patient was not coerced and she was competent to sign her own informed consent. ANTHONY/RONNELL Voice ID: [id number] Report ID: [id number]
[2018-04-15] MEDS: OXYBUTYNIN ER 5 MG TAB PO SCH (14:31)
--- NOTE | 2018-04-15 21:20 | OP ---
Surgeon: Lamberto Kramer MD Anesthesiologist: Dr. Stewart. Preoperative Diagnoses: Left distal urolithiasis, obstructed ureter, hydronephrosis. Postoperative Diagnoses: Left distal urolithiasis, obstructed ureter, hydronephrosis. Procedures Performed: Cystoscopy, left retrograde pyelogram, balloon dilation, ureteroscopy and ston e basket of stone and insertion of double-J stent, 6 x 28 cm. Anesthesia: General. Estimated Blood Loss: Minimal. Replacement: See record. Path Specimen: Stone. Complications: None. Drains: Insertion of internal double-J stent as mentioned. Indications: A pleasant 23-year-old female, who is having left flank pain, was diagnosed today a sto ne that has migrated to the left lower ureter by the UVJ. She was given all the general information, alternatives, and risks. She was competent and she was not coerced in obtaining the informed consen t. Description Of Procedure: She was properly identified, taken to the operative room, placed in a supi ne lithotomy position. The area was prepped and draped in usual sterile fashion. We entered the ure thra with the obturator, a 21-Panamanian and 30-degree lens. Bladder was scoped. No abnormalities were seen except for edematous left swollen orifice as shown in image #1. A retrograde pyelogram was perf ormed on the left, showing a tiny stone inside the ureter. A wire was placed and then a balloon was used to dilate the orifice. Then the semi-rigid scope was placed per urethra and into the bladder an d then followed the wire into the ureter for very dark colored urine, concentrated urine. We were ab le to see the stone in image #3. Stone was grasped and brought out as per image #4. We then passed the scope all the way up to above the iliac and the ureter was clear. I then withdrew the scope slow ly, looking for any more debris or stones, none was found. Went ahead and measured the ureter at 28 cm and placed a 6-Panamanian x 28 cm stent. The string was left attached in the vagina to facilitate eas y removal. She was a walk-in and went to recovery room in stable condition after all the scopes were removed, leaving the double-J stent in place, showing good efflux through the stent. Plan is to see the patient back in the office in a week to remove her stent. PB/MODL Voice ID: [id number] Report ID: [id number]
[2018-04-16] MEDS: NA CHLORIDE 0.9% 1,000 ML IV SCH (04:34)
[2018-04-16] MEDS: MORPHINE 4 MG/ML SYR IV PRN (04:34)
[2018-04-16 05:59] LABS: BUN Blood Urea Nitrogen 7 mg/dL (7-18); Bicarbonate 28 mmol/L (21-32); Glucose Level 77 mg/dL (74-106); Potassium 4.1 mmol/L (3.5-5.1); Sodium Level 141 mmol/L (136-145)
[2018-04-16] MEDS ORDERED: CODEINE 30MG/APAP 300MG TAB PO PRN (08:26)
[2018-04-16] MEDS ORDERED: TRAMADOL HCL 50 MG TAB PO PRN (08:26)
[2018-04-16] MEDS ORDERED: DOCUSATE NA 100 MG CAP PO SCH (09:00)
[2018-04-16] MEDS: OXYBUTYNIN ER 5 MG TAB PO SCH (09:16)
[2018-04-16] MEDS: CEFTRIAXONE/SWI 1gm 1 GM/10 ML SYR IV SCH (09:16)
[2018-04-16 12:31] VITALS: BP 99/56; TEMP 98.2
== END 2018-04-16 14:33 | disposition home or self-care (01) | DRG 661 ==
LOC: ER 19:19 → ERHOLD 04-15 00:08 → 2ND 04-15 00:33
PROVIDERS: ADMIT Hospitalist; ATTEND Family Medicine
PROC: 0TC78ZZ Extirpation of Matter from Left Ureter, Via Natural or Artificial Opening Endoscopic (ICD-10-PCS; 2018-04-15)
PROC: BT1FYZZ Fluoroscopy of Left Kidney, Ureter and Bladder using Other Contrast (ICD-10-PCS; 2018-04-15)
PROC: 0T778DZ Dilation of Left Ureter with Intraluminal Device, Via Natural or Artificial Opening Endoscopic (ICD-10-PCS; principal; 2018-04-15 10:30)
DX: N13.2 Hydronephrosis with renal and ureteral calculous obstruction (principal); Z87.442 Personal history of urinary calculi
CPT/HCPCS: 36415; 51600; 74018; 74176; 74430; 76377; 80048; 80053; 80076; 81003; 81015; 81025; 83690; 83735; 84100; 85025; 87086; 87088; 88300; J0696; J2250; J2405; J2704; J3010; J7030; Q9967

== ENCOUNTER 2018-04-20 01:23 | Emergency (ER) | payer SELFPAY ==
--- OUTSIDE RECORDS SUMMARY | 2018-04-20 01:24 | XMS REPORT ---
[...] End Date Status Dosage Date Flagyl NDC 49231114496 500 MG Orally Active 1 tablet every 12 hours Nexplanon NDC [id number] 68 MG Active not defined Subcutaneous Flagyl NDC [id number] 500 MG Orally Active 1 tablet every 12 hours Results No Known Results Summary Purpose eClinicalWorks Submission
--- OUTSIDE RECORDS SUMMARY | 2018-04-20 01:25 | XMS REPORT ---
[...] Start Date End Date Status Dosage Diflucan [facility] [id number] 150 MG Orally Active 1 tablet Once a day Results No Known Results Summary Purpose eClinicalWorks Submission
[2018-04-20 02:15] LABS: Absolute Lymphocytes (CBC) 1.6 K/uL (0.7-4.9); Absolute Monocytes 0.5 K/uL (0.1-1.3); Absolute Neutrophil 4.5 K/uL (1.8-8.0); Basophils % 0.7 % (0-1.3); Hematocrit 38.2 % (36.0-45.0); MPV 7.8 fL (7.6-11.3); Monocytes % 7.7 % (3.3-12.3); RBC Red Blood Cell Count 4.18 M/uL (3.86-4.86)
[2018-04-20] MEDS ORDERED: BISACODYL 10 MG RECTAL SUPP ONE (02:18)
[2018-04-20] MEDS ORDERED: KETOROLAC 30 MG/ML INJ ONE (02:18)
[2018-04-20] MEDS ORDERED: NA CHLORIDE 0.9% 1,000 ML ONE (02:18)
[2018-04-20 02:24] LABS: Potassium 3.7 mmol/L (3.5-5.1)
--- NOTE | 2018-04-20 03:11 | EDPHYS ---
Physician Documentation [facility] Name: Yodit Sierra Age: 23 yrs Sex: Female : 1995 Arrival Date: 04/20/2018 Time: : Bed 7 Private MD: ED Physician Bucky Sigala HPI: 04/20 03:04 This 23 yrs old Unknown Female presents to ER via Ambulatory with complaints of LT gs FLANK PAIN. 03:04 The patient complains of pain in the left low back. The pain radiates to the left lower gs quadrant. Onset: The symptoms/episode began/occurred gradually. Modifying factors: The symptoms are alleviated by nothing. the symptoms are aggravated by nothing. Associated signs and symptoms: Pertinent positives: hematuria, constipation. Severity of pain: At its worst the pain was moderate in the emergency department the pain is unchanged. The patient has experienced similar episodes in the past, a few times. 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 - Social history:: Smoking status: unknown. - Ebola Screening: : No symptoms or risks identified at this time. ROS: 03:04 All other systems are negative. gs Exam: 03:04 Eyes: Pupils equal round and reactive to light, extra-ocular motions intact. Lids and gs lashes normal. Conjunctiva and sclera are non-icteric and not injected. Cornea within normal limits. Periorbital areas with no swelling, redness, or edema. ENT: Nares patent. No nasal discharge, no septal abnormalities noted. Tympanic membranes are normal and external auditory canals are clear. Oropharynx with no redness, swelling, or masses, exudates, or evidence of obstruction, uvula midline. Mucous membranes moist. Neck: Trachea midline, no thyromegaly or masses palpated, and no cervical lymphadenopathy. Supple, full range of motion without nuchal rigidity, or vertebral point tenderness. No Meningismus. Chest/axilla: Normal chest wall appearance and motion. Nontender with no deformity. No lesions are appreciated. Cardiovascular: Regular rate and rhythm with a normal S1 and S2. No gallops, murmurs, or rubs. Normal PMI, no JVD. No pulse deficits. Respiratory: Lungs have equal breath sounds bilaterally, clear to auscultation and percussion. No rales, rhonchi or wheezes noted. No increased work of breathing, no retractions or nasal flaring. Abdomen/GI: Soft, non-tender, with normal bowel sounds. No distension or tympany. No guarding or rebound. No evidence of tenderness throughout. Back: No spinal tenderness. No costovertebral tenderness. Full range of motion. Skin: Warm, dry with normal turgor. Normal color with no rashes, no lesions, and no evidence of cellulitis. MS/ Extremity: Pulses equal, no cyanosis. Neurovascular intact. Full, normal range of motion. Neuro: Awake and alert, GCS 15, oriented to person, place, time, and situation. Cranial nerves II-XII grossly intact. Motor strength 5/5 in all extremities. Sensory grossly intact. Cerebellar exam normal. Normal gait. 03:04 Constitutional: The patient appears alert, awake. Vital Signs: 01:41 BP 110 / 81; Pulse 78; Resp 18; Temp 98.5(O); Pulse Ox 100% on R/A; Weight 74.39 kg ak1 (R); Height 5 ft. 5 in. (165.10 cm) (R); Pain 8/10; 03:10 BP 112 / 73; Pulse 75; Resp 18 S; Pulse Ox 100% on R/A; cc3 01:41 Body Mass Index 27.29 (74.39 kg, 165.10 cm) ak1 Procedures: 03:04 Performed removal of stent no complications. gs MDM: 01:51 Patient medically screened. gs 03:04 Differential diagnosis: nephrolithiasis, pyelonephritis, UTI. Data reviewed: vital gs signs, nurses notes. Counseling: I had a detailed discussion with the patient and/or guardian regarding: the historical points, exam findings, and any diagnostic results supporting the discharge/admit diagnosis, lab results, the need for outpatient follow up, to return to the emergency department if symptoms worsen or persist or if there are any questions or concerns that arise at home. Response to treatment: the patient's symptoms have markedly improved after treatment, and as a result, I will discharge patient. ED course: spoke to dr gaurang wants stent out. 04/20 01:53 Order name: Urine Microscopic Only 04/20 01:54 Order name: CBC with Diff; Complete Time: 03:03 04/20 01:54 Order name: Basic Metabolic Panel; Complete Time: 03:03 04/20 02:36 Order name: Urine Dipstick--Ancillary (enter results) [facility] 04/20 02:36 Order name: Urine --Ancillary (enter results) [facility] 04/20 01:53 Order name: Urine Dipstick-Ancillary (obtain specimen); Complete Time: 02:37 Administered Medications: 02:13 Drug: NS 0.9% 1000 ml Route: IV; Rate: 1 bolus; Site: right antecubital; ak1 02:14 Drug: Dulcolax Suppository 10 mg Route: PA; ak1 02:37 Follow up: Response: No adverse reaction ak1 02:39 Drug: TORadol 15 mg Route: IVP; Site: right antecubital; ed1 03:30 Follow up: Response: No adverse reaction; Pain is decreased cc3 Disposition: 04/20/18 03:10 Discharged to Home. Impression: Hematuria, Displacement of urinary stent. - Condition is Stable. - Discharge Instructions: Hematuria, Adult. - Medication Reconciliation Form, Thank You Letter, Antibiotic Education, Prescription Opioid Use form. - Follow up: Lamberto Kramer MD; When: 2 - 3 days; Reason: Re-evaluation by your physician. Signatures: Dispatcher [employer] Yamileth Marquez RN RN ed1 Marika Mcclure RN RN ak1 Bucky Sigala MD MD Flor Benson cc3 Corrections: (The following items were deleted from the chart) 03:35 03:10 04/20/2018 03:10 Discharged to Home. Impression: Hematuria; Displacement of cc3 urinary stent. Condition is Stable. Forms are Medication Reconciliation Form, Thank You Letter, Antibiotic Education, Prescription Opioid Use. Follow up: Lamberto Kramer; When: 2 - 3 days; Reason: Re-evaluation by your physician.
--- NOTE | 2018-04-20 03:11 | ER ---
Nurse's Notes [facility] Name: Yodit Sierra Age: 23 yrs Sex: Female : 1995 Arrival Date: 04/20/2018 Time: : Bed 7 Private MD: Diagnosis: Hematuria;Displacement of urinary stent Presentation: 04/20 01:36 Presenting complaint: Patient states: sharp pains to left lower abd, pt had stint ak1 placed Sunday by Dr. Kramer. pt c/o blood in urine with intermittent clots. pt c/o burning with urination. pt stated no BM since Sunday, enema today with "very little" output. Transition of care: patient was not received from another setting of care. Onset of symptoms was April 20, 2018. Risk Assessment: Do you want to hurt yourself or someone else? Patient reports no desire to harm self or others. Initial Sepsis Screen: Does the patient meet any 2 criteria? No. Patient's initial sepsis screen is negative. Does the patient have a suspected source of infection? No. Patient's initial sepsis screen is negative. Care prior to arrival: None. 01:36 Method Of Arrival: Ambulatory ak1 01:36 Acuity: MARILYN 3 ak1 Triage Assessment: 01:41 General: Appears uncomfortable, Behavior is calm, cooperative. Pain: Complains of pain ak1 in suprapubic area and left lower quadrant. EENT: No signs and/or symptoms were reported regarding the EENT system. Neuro: No deficits noted. Cardiovascular: No deficits noted. Respiratory: No deficits noted. GI: No signs and/or symptoms were reported involving the gastrointestinal system. : Reports burning with urination, pain in left in suprapubic area lower quadrant(s) with urination. Derm: No signs and/or symptoms reported regarding the dermatologic system. Musculoskeletal: No signs and/or symptoms reported regarding the musculoskeletal system. RN CLINICAL REVIEW: 01:41 LMP 03/20/2018 ak1 Historical: - Allergies: 01:41 NKA; ak1 - Home Meds: :41 tramadol Oral [Active]; ak1 - PMHx: 01:41 Kidney stones; ak1 - PSHx: 01:41 None; ak1 - Immunization history:: Adult Immunizations unknown. - Social history:: Smoking status: unknown. - Ebola Screening: : No symptoms or risks identified at this time. Screenin:44 Abuse screen: Denies threats or abuse. Denies injuries from another. Nutritional ak1 screening: No deficits noted. Tuberculosis screening: No symptoms or risk factors identified. Fall Risk None identified. Assessment: :44 Reassessment: Patient appears in no apparent distress at this time. No changes from ak1 previously documented assessment. see triage assessment. 02:00 Reassessment: pt given water to attempt to provide urine sample. ak1 02:20 Reassessment: pt given brief and bedside commode for comfort at pt request. ak1 03:30 Reassessment: Patient appears in no apparent distress at this time. Patient and/or cc3 family updated on plan of care and expected duration. Pain level reassessed. Patient is alert, oriented x 3, equal unlabored respirations, skin warm/dry/pink. discharged the patient home, no prescription given. IV cannula removed and patient left ER vitally stable and ambulatory with her mother. Patient denies pain at this time. Patient states feeling better. Patient states symptoms have improved. Vital Signs: 01:41 BP 110 / 81; Pulse 78; Resp 18; Temp 98.5(O); Pulse Ox 100% on R/A; Weight 74.39 kg ak1 (R); Height 5 ft. 5 in. (165.10 cm) (R); Pain 8/10; 03:10 BP 112 / 73; Pulse 75; Resp 18 S; Pulse Ox 100% on R/A; cc3 01:41 Body Mass Index 27.29 (74.39 kg, 165.10 cm) [facility] ED Course: 01:26 Patient arrived in ED. es 01:29 Bucky Sigala MD is Attending Physician. gs 01:38 Triage completed. ak1 01:41 Arm band placed on Patient placed in an exam room, on a stretcher, on pulse oximetry, ak1 Patient notified of wait time. :44 Patient has correct armband on for positive identification. Bed in low position. Call ak1 light in reach. Side rails up X 1. Pulse ox on. NIBP on. 02:00 Initial lab(s) drawn, by me, sent to lab. Inserted saline lock: 22 gauge in right ak1 antecubital area, using aseptic technique. Blood collected. 02:38 Yamileth Forrest, RN is Primary Nurse. ed1 03:09 Lamberto Kramer MD is Referral Physician. 03:30 No provider procedures requiring assistance completed. IV discontinued, intact, cc3 bleeding controlled, No redness/swelling at site. Pressure dressing applied. Administered Medications: 02:13 Drug: NS 0.9% 1000 ml Route: IV; Rate: 1 bolus; Site: right antecubital; ak1 02:14 Drug: Dulcolax Suppository 10 mg Route: ND; ak1 02:37 Follow up: Response: No adverse reaction ak1 02:39 Drug: TORadol 15 mg Route: IVP; Site: right antecubital; ed1 03:30 Follow up: Response: No adverse reaction; Pain is decreased cc3 Outcome: 03:10 Discharge ordered by MD. gs 03:30 Discharged to home ambulatory, with family. cc3 03:30 Condition: stable 03:30 Discharge instructions given to patient, family, Instructed on discharge instructions, follow up and referral plans. Demonstrated understanding of instructions, follow-up care. 03:35 Patient left the ED. cc3 Signatures: Lacey Yeboah Erika, RN RN ed1 Marika Mcclure RN RN ak1 Bucky Sigala MD MD gs Cordel, Charlene cc3
[2018-04-20 03:30] LABS: Urine Blood 3+ (NEG); Urine Glucose NEGATIVE (NEG); Urine Protein 3+ (NEG)
[2018-04-20 03:34] LABS: Urine Bacteria <20 /HPF (<20); Urine RBC >50 /HPF (NONE SEEN)
[2018-04-20 03:35] LABS: Urine Culture Reflex Order REFLEXED
[2018-04-20 03:44] VITALS: BP 110/81; TEMP 98.5; O2SAT 100
== END 2018-04-20 03:35 | disposition home or self-care (01) ==
LOC: ER 01:23
DX: T83.123A Displacement of other urinary stents, initial encounter (principal); R31.9 Hematuria, unspecified; Z87.442 Personal history of urinary calculi
CPT/HCPCS: 36415; 80048; 81003; 81015; 81025; 85025; 87086; 87088; 96374; 99284; J7030

== ENCOUNTER 2021-07-12 18:23 | Emergency (ER) | payer SELFPAY ==
--- OUTSIDE RECORDS SUMMARY | 2021-07-12 18:26 | XMS REPORT | Continuity of Care Document ---
:1995 Author Organization [facility] t Address [address] [place] [address] Care Team Providers Name Role Phone Matti SANTOYO Primary Care Physician Unavailable Bobby Koenig Attending Clinician Bobby JEFFERSON Attending Clinician Unavailable Payers Payer Name Policy Type Policy Number Effective Date Expiration Date S ource Problems Condition Condition Condition Status Onset Resolution Last Treating Co mments Source Name Details Category Date Date Treatment Clinician Date Well woman Well woman Disease Active U nivers exam exam 1-04 ity of 00:00: [address] Nexplanon Nexplanon Disease Active Uni vers removal removal 04 ity of 00:00: [address] Exposure Exposure Disease Active Unive rs to to 1-04 ity of sexually sexually 00:00: [place] transmitte transmitte 00 Me dical d disease d disease Bran ch (STD) (STD) BMI BMI Disease Active Univers 26.0-26.9, 26.0-26.9, 1-04 it y of adult adult 00:00: [address] Vaginal Vaginal Disease Active Univers discharge discharge 1-04 ity of 00:00: [address] Encounter Encounter Problem [facility] screening screening Edwardo jonathan for for l infections infections Ou tpati with with ent predominan predominan Cl inics tly sexual tly sexual mode of mode of transmissi transmissi on on Encounter Encounter Problem [facility] - surveillan surveillan Me moria ce of ce of l implantabl implantabl Ou tpati e e ent subdermal subdermal Clin ics contracept contracept efren efren Subacute Subacute Problem [facility] Encounter Encounter Problem [facility] - gynecologi gynecologi Me moria bhavya bhavya l examinatio examinatio Ou tpati n without n without ent abnormal abnormal Clinic s finding finding Other Other Problem Active [facility] specified specified [facility] - bacterial bacterial Edwardo jonathan agents as agents as l the cause the cause Outp ati of of ent diseases diseases Clinic s classified classified elsewhere elsewhere Acute Acute Problem Active [facility] vaginitis [facility]initis [facility] Allergies, Adverse Reactions, Alerts Allergy Allergy Status Severity Reaction(s) Onset Inactive Treating Comm ents Source Name Type Date Date Clinician NO KNOWN Drug Active Univers ALLERGIE Class ity of S [facility] Social History Social Habit Start Date Stop Date Quantity Comments Source Exposure to Not sure [facility] SARS-CoV-2 (event) [facility] Tobacco use and 2021-03-29 2021-03-29 Never used [facility] exposure 00:00:00 00:00:00 [facility] Sex Assigned At [birth year] [facility] 00:00:00 00:00:00 [facility] Smoking Status Start Date Stop Date Source Never smoker [facility] Medications Ordered Filled Start Stop Current Ordering Indication Dosage Frequency Signature Comments Components Source Medication Medication Date Date Medication? Clinician (SIG) Name Name levonorgest Yes 1{tbl} Take 1 Un eliseo rel-ethinyl 3-02 tablet by ity of estradiol 14:56: mouth [place] 0.1-20 55 daily. Medical mg-mcg per Branch tablet predniSONE Yes [id number] TAKE ONE Univers 20 mg 2-01 TABLET BY ity of tablet 00:00: MOUTH [place] 00 DAILY [facility] hydrOXYzine Yes [id number] 25mg Take 1 Univers 25 mg 2-01 tablet by ity of tablet 00:00: mouth [place] 00 every 6 Medical (six) Branch hours as needed for Itching. Diflucan Diflucan Yes Ramón [address] [facility] Vital Signs Vital Name Observation Time Observation Value Comments Source Systolic blood 2021-05-25 20:33:00 113 mm[Hg] Univer sity of pressure [facility] Diastolic blood 2021-05-25 20:33:00 71 mm[Hg] Unive rsity of pressure [facility] Heart rate 2021-05-25 20:33:00 87 /min [facility] Body temperature 2021-05-25 20:33:00 36.56 Lucina [facility] Respiratory rate 2021-05-25 20:33:00 18 /min [facility] Body height 2021-05-25 20:33:00 157.5 cm [facility] Body weight 2021-05-25 20:33:00 68.947 kg [facility] BMI 2021-05-25 20:33:00 27.80 kg/m2 [facility] Procedures Procedure Date / Time Performed Performing Clinician Sourc e POCT TEST 2021-05-25 22:25:00 [facility] Encounters Start End Encounter Admission Attending Care Care Encounter Source Date/Time Date/Time Type Type Clinicians Facility Department ID 2021-05-25 2021-05-25 Office Shira [facility] [id number] Univers 14:15:00 15:05:24 Visit Mary Rosales VENTILATOR SPECIALIST [id number] ity [facility] [id number] Jas as MATERNAL [id number] Med ical & CHILD [address] [place] [address] 2021-05-25 2021-05-25 Outpatient Matti JEFFERSON [facility] [id number] Univers 14:15:00 15:05:24 MARY farley [facility] 2017-07-11 2017-07-11 Outpatient Eros Bunn [id number] [facility] [address] 10:47[facility]00 10:47[facility] 2017-07-04 2017-07-04 Outpatient Eros Bunn [id number] 11:30:00 11:30:00 [facility] [place] [facility] l Outpat[facility] ent Clinics Results Test Description Test Time Test Comments Results Result Comments Source POCT TEST 2021-05-25 22:25:00 Test Item Value Reference Range Interpretation Comme nts POCT PREG (test code = 1605) Negative On board controls acceptable with C Line (test code = 3574) Yes POCT PREG LOT # (test code = 3575) POCT PREG TEST DATE (test code = 3576) [facility]
--- NOTE | 2021-07-12 21:53 | EDPHYS ---
Physician Documentation [facility] Name: Yodit Sierra Age: 26 yrs Sex: Female : 1995 Arrival Date: 07/12/2021 Time: 18:26 Bed 9 Private MD: ED Physician Darwin Leach HPI: 07/12 21:42 This 26 yrs old Female presents to ER via Ambulatory with complaints of Allergic mh7 Reaction, Wound Check. 21:42 The patient presents with itching, nausea. Onset: The symptoms/episode began/occurred 4 mh7 day(s) ago. Associated signs and symptoms: Pertinent positives: nausea, Pertinent negatives: abdominal pain, Altered mental status chest pain, dysphagia, fever, headache, hives, Light headed rash, shortness of breath, swelling, Syncope vomiting. Possible causes: antibiotics, Bactrim, Rifampin. At home the patient or guardian has treated the symptoms with nothing. Severity of symptoms: At their worst the symptoms were mild 3 day(s) ago, in the emergency department the symptoms are unchanged. 21:42 States she has a bump/possible staph infection on her right inner thigh for 2 weeks. mh7 She was put on antibiotics 1 week ago for it but has since started itching all over and had intermittent nausea. Denies fever, vomiting, rash, pain, swelling, SOB, chest pain, abdominal pain, or other complaints.. Historical: - Allergies: 18:49 NKA; iw - PMHx: 18:49 Kidney stones; iw - Immunization history:: Adult Immunizations up to date. - Social history:: Smoking status: unknown. ROS: 21:42 Constitutional: Negative for fever, chills, and weight loss, Eyes: Negative for injury, mh7 pain, redness, and discharge, ENT: Negative for injury, pain, and discharge, Neck: Negative for injury, pain, and swelling, Cardiovascular: Negative for chest pain, palpitations, and edema, Respiratory: Negative for shortness of breath, cough, wheezing, and pleuritic chest pain, Abdomen/GI: Negative for abdominal pain, nausea, vomiting, diarrhea, and constipation, Back: Negative for injury and pain, : Negative for injury, bleeding, discharge, and swelling, Neuro: Negative for headache, weakness, numbness, tingling, and seizure, Psych: Negative for depression, anxiety, suicide ideation, homicidal ideation, and hallucinations, Endocrine: Negative for neck swelling, polydipsia, polyuria, polyphagia, and marked weight changes, Hematologic/Lymphatic: Negative for swollen nodes, abnormal bleeding, and unusual bruising. Exam: 21:42 Constitutional: This is a well developed, well nourished patient who is awake, alert, mh7 and in no acute distress. Head/Face: Normocephalic, atraumatic. Eyes: Pupils equal round and reactive to light, extra-ocular motions intact. Lids and lashes normal. Conjunctiva and sclera are non-icteric and not injected. Cornea within normal limits. Periorbital areas with no swelling, redness, or edema. ENT: Nares patent. No nasal discharge, no septal abnormalities noted. Tympanic membranes are normal and external auditory canals are clear. Oropharynx with no redness, swelling, or masses, exudates, or evidence of obstruction, uvula midline. Mucous membranes moist. Neck: Trachea midline, no thyromegaly or masses palpated, and no cervical lymphadenopathy. Supple, full range of motion without nuchal rigidity, or vertebral point tenderness. No Meningismus. Chest/axilla: Normal chest wall appearance and motion. Nontender with no deformity. No lesions are appreciated. Cardiovascular: Regular rate and rhythm with a normal S1 and S2. No gallops, murmurs, or rubs. Normal PMI, no JVD. No pulse deficits. Respiratory: Lungs have equal breath sounds bilaterally, clear to auscultation and percussion. No rales, rhonchi or wheezes noted. No increased work of breathing, no retractions or nasal flaring. Abdomen/GI: Soft, non-tender, with normal bowel sounds. No distension or tympany. No guarding or rebound. No evidence of tenderness throughout. Back: No spinal tenderness. No costovertebral tenderness. Full range of motion. Neuro: Awake and alert, GCS 15, oriented to person, place, time, and situation. Cranial nerves II-XII grossly intact. Motor strength 5/5 in all extremities. Sensory grossly intact. Cerebellar exam normal. Normal gait. Psych: Awake, alert, with orientation to person, place and time. Behavior, mood, and affect are within normal limits. 21:42 Skin: induration, is not appreciated, Other no erythema, tenderness, or swelling, mh7 lesion(s), noted, and can be described as nontender, papule(s) noted, located on the right inner thigh, no rash present. 21:42 Musculoskeletal/extremity: Extremities: noted in the right inner thigh: small papule, mh7 no induration, tenderness, surrounding erythema, swelling, ROM: intact in all extremities, Circulation is intact in all extremities. Sensation intact. Vital Signs: 18:46 BP 106 / 79; Pulse 93; Resp 16; Temp 97.5; Pulse Ox 100% on R/A; iw 22:03 BP 113 / 69; Pulse 72; Resp 16 S; Pulse Ox 99% on R/A; bb MDM: 21:50 Differential diagnosis: non IgE mediated drug reaction urticaria, pruritus, non mh7 specific allergic reaction. Data reviewed: vital signs, nurses notes. Data interpreted: Pulse oximetry: on room air is 100 %. Interpretation: normal. 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 21:52 Patient medically screened. [facility] Administered Medications: 21:53 Drug: Benadryl (diphenhydrAMINE) 50 mg Route: PO; bb 22:01 Follow up: Response: No adverse reaction bb 21:53 Drug: Pepcid (famotidine) 20 mg Route: PO; bb 22:01 Follow up: Response: No adverse reaction bb 21:53 Drug: predniSONE 40 mg Route: PO; bb 22:01 Follow up: Response: No adverse reaction Disposition Summary: 07/12/21 21:52 Discharge Ordered Location: Home [facility] Problem: new mh7 Symptoms: have improved mh7 Condition: Stable mh7 Diagnosis - Pruritus, unspecified - possible allergic reaction mh7 Followup: 7 - With: Private Physician - When: 1 - 2 days - Reason: Worsening of condition, Recheck today's complaints, Continuance of care, Re-evaluation by your physician Followup: 7 - With: Toribio Johnson MD - When: 1 - 2 days - Reason: Worsening of condition, Recheck today's complaints Discharge Instructions: - Discharge Summary Sheet 7 - Pruritus 7 - Allergies, Adult, [id number] [facility] Forms: - Medication Reconciliation Form [facility] - Thank You Letter [facility] - Antibiotic Education [facility] - Prescription Opioid Use [facility] Prescriptions: - Benadryl 25 mg Oral Capsule - take 1 capsule by ORAL route every 6 hours As needed; 30 tablet; Refills: 0, [facility] Product Selection Permitted - Pepcid 20 mg Oral Tablet - take 1 tablet by ORAL route every 12 hours for 5 days; 10 tablet; Refills: 0, [facility] Product Selection Permitted - Prednisone 20 mg Oral Tablet - take 2 tablets by ORAL route once daily for 5 days; 10 tablet; Refills: 0, [facility] Product Selection Permitted Signatures: Shelbie Brown RN RN Emy Uribe RN RN iw Darwin Leach MD MD [facility] Corrections: (The following items were deleted from the chart) 21:44 21:42 The patient presents with itching, [place] [id number]
--- NOTE | 2021-07-12 21:53 | ER ---
Nurse's Notes [facility] Name: Yodit Sierra Age: 26 yrs Sex: Female : 1995 Arrival Date: 07/12/2021 Time: 18:26 Bed 9 Private MD: Diagnosis: Pruritus, unspecified-possible allergic reaction Presentation: 07/12 18:46 Chief complaint: Patient states: has small abscess on right inner thigh, was started on iw Bactrim and rifampin for possible MRSA but is now having nausea and her skin feels like it's itching everywhere , started abx on Sunday last week. Coronavirus screen: At this time, the client does not indicate any symptoms associated with coronavirus-19. Ebola Screen: Patient negative for fever greater than or equal to 101.5 degrees Fahrenheit, and additional compatible Ebola Virus Disease symptoms Patient denies exposure to infectious person. Patient denies travel to an Ebola-affected area in the 21 days before illness onset. No symptoms or risks identified at this time. 18:46 Method Of Arrival: Ambulatory iw 18:48 Initial Sepsis Screen: Does the patient meet any 2 criteria? No. Patient's initial iw sepsis screen is negative. Does the patient have a suspected source of infection? No. Patient's initial sepsis screen is negative. Risk Assessment: Do you want to hurt yourself or someone else? Patient reports no desire to harm self or others. 18:48 Acuity: MARILYN 4 iw Historical: - Allergies: 18:49 NKA; iw - PMHx: 18:49 Kidney stones; iw - Immunization history:: Adult Immunizations up to date. - Social history:: Smoking status: unknown. Screenin:30 Abuse screen: Denies threats or abuse. Nutritional screening: No deficits noted. bb Tuberculosis screening: No symptoms or risk factors identified. Fall Risk None identified. Assessment: 20:30 General: Appears in no apparent distress. uncomfortable, Behavior is calm, cooperative. bb Pain: Denies pain. Neuro: Level of Consciousness is awake, alert, obeys commands, Oriented to person, place, time, situation. Cardiovascular: No deficits noted. Respiratory: Airway is patent Respiratory effort is even, unlabored, Respiratory pattern is regular. GI: No signs and/or symptoms were reported involving the gastrointestinal system. Derm: Rash noted that is macular. Musculoskeletal: Circulation, motion, and sensation intact. 22:03 Reassessment: Patient is alert, oriented x 3, equal unlabored respirations, skin bb warm/dry/pink. pt verbalized understanding of and agrees to plan of care discharge instructions given pt ambulated with steady gait to exit. Vital Signs: 18:46 BP 106 / 79; Pulse 93; Resp 16; Temp 97.5; Pulse Ox 100% on R/A; iw 22:03 BP 113 / 69; Pulse 72; Resp 16 S; Pulse Ox 99% on R/A; bb ED Course: 18:26 Patient arrived in ED. as 18:49 Triage completed. iw 18:49 Arm band placed on. iw 20:30 Patient has correct armband on for positive identification. bb 20:30 No provider procedures requiring assistance completed. Patient did not have IV access bb during this emergency room visit. 20:42 Darwin Leach MD is Attending Physician. [facility] 20:48 Shelbie Brown RN is Primary Nurse. bb 21:51 Toribio Johnson MD is Referral Physician. [facility] Administered Medications: 21:53 Drug: Benadryl (diphenhydrAMINE) 50 mg Route: PO; bb 22:01 Follow up: Response: No adverse reaction bb 21:53 Drug: Pepcid (famotidine) 20 mg Route: PO; bb 22:01 Follow up: Response: No adverse reaction bb 21:53 Drug: predniSONE 40 mg Route: PO; bb 22:01 Follow up: Response: No adverse reaction bb Outcome: 21:52 Discharge ordered by . [facility] 22:04 Discharged to home ambulatory. bb 22:04 Condition: stable 22:04 Discharge instructions given to patient, Instructed on discharge instructions, follow up and referral plans. medication usage, Demonstrated understanding of instructions, follow-up care, medications, Prescriptions given X 3. 22:04 Patient left the ED. bb Signatures: Valery Vital as Shelbie Brown, MICHELINE RN bb Emy Christian RN RN iw Darwin Leach MD MD [facility]
[2021-07-12] MEDS ORDERED: DIPHENHYDRAMINE 25 MG TAB/CAP ONE (21:54)
[2021-07-12] MEDS ORDERED: predniSONE 20 MG TAB ONE (21:54)
[2021-07-12] MEDS ORDERED: FAMOTIDINE 20 MG TAB ONE (21:54)
[2021-07-13 04:50] VITALS: TEMP 97.5
[2021-07-13 04:52] VITALS: BP 113/69; O2SAT 99
== END 2021-07-12 22:04 | disposition home or self-care (01) ==
LOC: ER 18:23
DX: L29.9 Pruritus, unspecified (principal); R11.0 Nausea
CPT/HCPCS: 99283; J7512